=== PATIENT | female | born 1990 | race Caucasian/White ===

== ENCOUNTER 2022-02-06 06:29 | Inpatient (IN) | payer BC, SELFPAY ==
[2022-02-06] VITALS (62 sets, daily range): BP systolic 107–157; BP diastolic 41–101; PULSE 73–231; RESP 16; TEMP 36.4–37.1; O2SAT 98–100; BMI 41.3
--- NOTE | 2022-02-06 06:29 | LDADM ---
This patient, Felicia Becerril, was admitted to Labor/Delivery/Recovery 106 on 02/06/22 at 06:29. Plans for labor, pain management and were discussed with patient. Patient/family oriented to hospital policies and general routines including ID bracelet, bed and alarms, visiting hours, pain management, procedures, bathroom and other care routines, personal items, smoking policy, room service/diet and guest tray routines, infant security routines, and visiting hours. Patient/Family are encouraged to report perceived risks to care and to ask questions if they do not understand what they are told or what they should do. See OBIX for further documentation.
[2022-02-06 07:15] LABS: Basophils Percent Auto 0.2 % (0.2-1.2); Eosinophils Percent Auto 0.4 % (0-4.4); Hematocrit 39.2 % (37.0-47.0); Hemoglobin 12.9 g/dL (12.0-15.0); Immature Granulocyte Absolute 0.09 K/mm3 (0.00-0.031); Immature Granulocyte Percent A 1.1 % (0-0.5); Lymphocytes Absolute Auto 1.12 K/mm3 (0.9-3.2); Lymphocytes Percent Auto 13.3 % (18.3-44.2); Mean Corpuscular HGB Conc 32.9 g/dl (32-36); Mean Corpuscular Hemoglobin 28.2 pg (26-34); Mean Corpuscular Volume 85.8 fl (80-100); Mean Platelet Volume 12.5 fl (7.4-10.4); Monocytes Absolute Auto 0.5 K/mm3 (0.1-0.6); Monocytes Percent Auto 5.7 % (2.6-8.5); Neutrophils Absolute Auto 6.7 K/mm3 (1.3-6.7); Neutrophils Percent Auto 79.3 % (45.5-73.1); Platelet Count Result 136 k/mm3 (150-375); Red Blood Count 4.57 M/mm3 (4.2-5.4); Red Cell Distribution Width 14.4 % (11.5-14.5); White Blood Count 8.4 K/mm3 (4.5-10.0)
[2022-02-06] MEDS: LACTATED RINGERS 1,000 ML 125 ML IV CONT ×2 (07:30→15:29)
[2022-02-06] MEDS: ceFAZolin 2 GM/D5W 50 ML 2 GM/50 ML BAG IVPB (07:30)
[2022-02-06] MEDS: OXYTOCIN 30 UNITS/NS 500 ML 30 UNITS/500 ML BAG IV CONT (07:31)
--- NOTE | 2022-02-06 08:03 | WPDOBADMIT ---
Obstetrics - Admit Note Admission Note: record reviewed. No pertinent additions to the history and/or any subsequent changes in the physical findings that are not consistent with the expected course of the were found. IOL, LGA, last EFW last week 8lb 13 oz, SVE 1-2/70/-2 AROM minimal amount of clear odorless fluid, anticipate vaginal delivery Additions to the history and/or subsequent changes in the physical findings follow. None.
--- NOTE | 2022-02-06 08:59 | WPDANESEPP ---
Anes - Eval Pre Procedure Procedure: Labor Epidural Date/Time: 02/06/22 08:59 Preop Diagnosis: Labor Pain Pre Op Diagnosis: Induction of Labor Patient Data Age: 31 Gender: F Height: 1.68 m Weight: 116 kg Last Vital Signs Pulse 91 02/06/22 08:45 BP 121/82 02/06/22 08:45 O2 Del Method Room Air 02/06/22 07:30 Allergies Allergy/AdvReac Type Severity Reaction Status Date / Time amoxicillin Allergy Hives Verified 01/09/22 13:44 Home Medications Medication Instructions Recorded Confirmed Type aspirin 81 mg tablet 81 mg PO DAILY 01/09/22 02/06/22 History omeprazole magnesium 10 mg oral 20 mg PO DAILY 01/09/22 02/06/22 History suspension,delayed release (Prilosec) prenat.vits,osman,rvk-hnbn-bbctn 1 tablet PO DAILY 01/09/22 01/09/22 History Laboratory Tests 02/06/22 02/06/22 02/06/22 07:01 07:01 07:01 WBC 8.4 K/mm3 K/mm3 (4.5-10.0) RBC 4.57 M/mm3 M/mm3 (4.2-5.4) Hgb 12.9 g/dL g/dL (12.0-15.0) Hct 39.2 % % (37.0-47.0) MCV 85.8 fl fl (80-100) MCH 28.2 pg pg (26-34) MCHC 32.9 g/dl g/dl (32-36) RDW 14.4 % % (11.5-14.5) Plt Count 136 k/mm3 L k/mm3 (150-375) MPV 12.5 fl H fl (7.4-10.4) Immature Gran % (Auto) 1.1 % H % (0-0.5) Neut % (Auto) 79.3 % H % (45.5-73.1) Lymph % (Auto) 13.3 % L % (18.3-44.2) [place] % (Auto) 5.7 % % (2.6-8.5) Eos % (Auto) 0.4 % % (0-4.4) Baso % (Auto) 0.2 % % (0.2-1.2) Lymph # (Auto) 1.12 K/mm3 K/mm3 (0.9-3.2) [place] # (Auto) 0.5 K/mm3 K/mm3 (0.1-0.6) Eos # (Auto) 0.0 K/mm3 K/mm3 (0-0.3) Baso # (Auto) 0.0 K/mm3 K/mm3 (0.0-0.1) Abs Immat Gran (auto) 0.09 K/mm3 H K/mm3 (0.00-0.031) Absolute Neuts (auto) 6.7 K/mm3 K/mm3 (1.3-6.7) Absolute Nucleated RBC 0.0 K/mm3 K/mm3 (0.0-0.012) Nucleated RBC % 0.0 % % (0.0-0.2) % Immature Plt Fraction 19.0 % H % (0.9-11.2) RPR Pending Blood Type O Positive Antibody Screen Negative Patient hx anesthesia problems: none Family hx anesthesia problems: none Results Review: All pre-operative results and documents have been reviewed as part of the pre-operative evaluation. [facility] Family History Family History Mother Diabetes mellitus Lr syndrome Colon cancer Grandparent Diabetes mellitus Grandparent Heart disease Father Dementia Social History Social History Smoking status: Never smoker Substance use: never Lack of Transportation: No Lack of Food: Never True Current Housing: I Have Housing Concerned About Future Housing: No Difficulty Paying Gas/Electric Bills: No Difficulty Paying for Meds: No Currently Unemployed: No Education: Master's Degree or Higher Difficulty w/ Childcare or Family Care: No Spiritual care concerns: No Comments Medical History: Lr Syndrom, IBS, Fibromyalgia, Anxiety/Depression, ADHD Exam Day of Procedure 02/06/22 08:59
[2022-02-06] MEDS: fentaNYL CITRATE INJ (*CRX) 100 MCG/2 ML VIAL IV PUSH (18:10)
--- NOTE | 2022-02-06 20:58 | P.PCNOB_ITS ---
OB - Delivery Note Procedure Delivery date: 02/06/22 Procedure: Events: Positive Group B Strep (GBS) Induction method: AROM and Per Pitocin Protocol Delivery monitor: External FHT and External Uterine Route of delivery: Laceration Description: Labial (left) Delivery repair: vicryl Specimen: No Quantitative Blood Loss (ml): 103 Anesthesia type: Epidural Disposition: Floor Narrative: mom and baby stable and doing skin to skin [place] Baby Date of : 02/06/22 Time of : 20:40 Weeks of gestation at delivery: 39 gender: Male Weight (pounds): 8 Weight (ounces): 4 presentation: vertex position: Right Occiput Anterior Placenta delivery description: Spontaneous Cord Vessel Description: 3 Vessels, Reduced, Clamped/Cut, Delayed Cord Clamping and Around Body score one minute: 8 score five minutes: 8
[2022-02-06] MEDS: IBUPROFEN 600 MG TABLET PO (22:04)
--- NOTE | 2022-02-06 23:07 | PC.NURSE ---
Patient transferred to post room # 290 via ( w/c ). Support person present. Oriented to unit, room, information board, rooming in, admission packet and security measures. Patient verbalizes understanding.
[2022-02-06] MEDS: ACETAMINOPHEN 325 MG TABLET 650 MG PO (23:54)
[2022-02-07 05:50] VITALS: BP 126/80; PULSE 76; RESP 16; TEMP 37; O2SAT 98
[2022-02-07] MEDS: IBUPROFEN 600 MG TABLET PO ×3 (05:51→20:52)
--- NOTE | 2022-02-07 06:03 | PM.OBPNVD ---
OB - PN: Subj Subjective Date/time seen: 02/07/22 06:03 s/p vaginal delivery day 1 OB - PN: Obj Data Labs 02/06/22 07:01 Labs: Laboratory Results - last 24 hr 02/06/22 02/06/22 07:01 07:01 WBC 8.4 RBC 4.57 Hgb 12.9 Hct 39.2 MCV 85.8 MCH 28.2 MCHC 32.9 RDW 14.4 Plt Count 136 L MPV 12.5 H Immature Gran % (Auto) 1.1 H Neut % (Auto) 79.3 H Lymph % (Auto) 13.3 L [place] % (Auto) 5.7 Eos % (Auto) 0.4 Baso % (Auto) 0.2 Lymph # (Auto) 1.12 [place] # (Auto) 0.5 Eos # (Auto) 0.0 Baso # (Auto) 0.0 Abs Immat Gran (auto) 0.09 H Absolute Neuts (auto) 6.7 Absolute Nucleated RBC 0.0 Nucleated RBC % 0.0 % Immature Plt Fraction 19.0 H Blood Type O Positive Antibody Screen Negative OB - PN A/P Plan day: 1 Plan: routine care Time Spent With Patient Time: Total time spent is greater than 50% in coordination of care (as documented) at patient's floor/unit and/or counseling patient: Review of Systems Review of Systems: All systems reviewed & are unremarkable except as noted in HPI and below Exam Const: General: cooperative and healthy appearing Nutritional Appearance: average body habitus
[2022-02-07 06:24] LABS: Hematocrit 34.7 % (37.0-47.0); Hemoglobin 11.2 g/dL (12.0-15.0)
--- NOTE | 2022-02-07 06:33 | PM.OBDSVD ---
DS: Admitting Diagnosis Discharge Date 02/07/22 Admitting Diagnosis IOL OB - DS: Summary OB Procedures : None OB Procedures Intrapartum: Spontaneous Vag Delivery OB Procedures: : None Time Spent with Patient Time attestation: Total time spent providing and/or coordinating discharge services: DS: Data Data Completed and Pending Labs on day of discharge: Labs from last 24 hours 02/07/22 02/06/22 02/06/22 05:55 07:01 07:01 WBC RBC Hgb 11.2 L Hct 34.7 L MCV MCH MCHC RDW Plt Count MPV Immature Gran % (Auto) Neut % (Auto) Lymph % (Auto) [place] % (Auto) Eos % (Auto) Baso % (Auto) Lymph # (Auto) [place] # (Auto) Eos # (Auto) Baso # (Auto) Abs Immat Gran (auto) Absolute Neuts (auto) Absolute Nucleated RBC Nucleated RBC % % Immature Plt Fraction RPR Pending Blood Type O Positive Antibody Screen Negative 02/06/22 07:01 WBC 8.4 RBC 4.57 Hgb 12.9 Hct 39.2 MCV 85.8 MCH 28.2 MCHC 32.9 RDW 14.4 Plt Count 136 L MPV 12.5 H Immature Gran % (Auto) 1.1 H Neut % (Auto) 79.3 H Lymph % (Auto) 13.3 L [place] % (Auto) 5.7 Eos % (Auto) 0.4 Baso % (Auto) 0.2 Lymph # (Auto) 1.12 [place] # (Auto) 0.5 Eos # (Auto) 0.0 Baso # (Auto) 0.0 Abs Immat Gran (auto) 0.09 H Absolute Neuts (auto) 6.7 Absolute Nucleated RBC 0.0 Nucleated RBC % 0.0 % Immature Plt Fraction 19.0 H RPR Blood Type Antibody Screen Discharge Plan Discharge Attending physician on discharge: Nenita He Discharging Clinician: Ysabel Olmos Patient Disposition: Home, Self-Care Activity: pelvic rest Diet: regular Patient Instructions: Antibiotic Form Stand Alone Forms: General Discharge Information Follow-up/Referrals: Ysabel Olmos, FIDELM [Certified Nurse [employer] Nurse] - Discharge Medications: New ibuprofen 600 mg Tablet 600 mg PO Q6H PRN (Reason: Cramping) Qty: 30 0RF Continued #2 Tablet 1 tablet PO DAILY Discontinued Adult Low Dose Aspirin 81 mg Tablet 81 mg PO DAILY Prilosec 10 mg Susp,Delayed Release For Recon 20 mg PO DAILY Date of admission: 02/06/22 06:29 Primary Care Provider: UNKNOWN,DOCTOR Admitting Provider: Nenita He Attending physician on admission: Ysabel Olmos Condition: Stable
[2022-02-07 08:30] VITALS: BP 116/70; PULSE 86; RESP 20; TEMP 36.4; O2SAT 98
--- NOTE | 2022-02-07 08:31 | PM.GYNPNOP ---
SCISSORS SHARPENER - A/P Postoperative Postoperative day: 1 Postoperative status: doing well Postoperative plan: see orders Time Spent With Patient Time: Total time spent is greater than 50% in coordination of care (as documented) at patient's floor/unit and/or counseling patient: Time with patient: less than 15 minutes SCISSORS SHARPENER- PN:Vivi Post-Op Subjective Date/time seen: 02/07/22 08:31 Subjective: patient reports feeling better, patient has no complaints and pain is well controlled Exam Const: General: healthy appearing, comfortable and no acute distress Resp: Auscultation: clear to auscultation bilaterally, no rales, no rhonchi and no wheezes Cardio: Rate: regular rate Heart sounds: no click, no murmurs and no rubs GI: Inspection: non-distended Auscultation: normal bowel sounds Extrem: General: normal to inspection, no pedal edema and no calf tenderness SCISSORS SHARPENER - PN: Obj Data Vital Signs Vital Signs: Vital Signs - 24 hr 02/06/22 08:45 02/06/22 09:00 02/06/22 09:15 Temperature 98 F Pulse Rate 91 87 90 Respiratory Rate Blood Pressure 121/82 125/72 122/82 Pulse Oximetry Oxygen Delivery 02/06/22 09:30 02/06/22 10:00 02/06/22 10:30 Temperature Pulse Rate 81 89 118 H Respiratory Rate Blood Pressure 121/71 107/65 120/64 Pulse Oximetry Oxygen Delivery 02/06/22 11:00 02/06/22 11:30 02/06/22 11:45 Temperature 98.4 F Pulse Rate 83 87 Respiratory Rate Blood Pressure 114/92 H 121/75 Pulse Oximetry Oxygen Delivery 02/06/22 12:00 02/06/22 12:30 02/06/22 13:45 Temperature Pulse Rate 87 91 109 H Respiratory Rate Blood Pressure 126/61 124/71 146/81 H Pulse Oximetry Oxygen Delivery 02/06/22 14:40 02/06/22 15:00 02/06/22 15:31 Temperature 97.5 F L Pulse Rate 95 93 Respiratory Rate Blood Pressure 117/72 121/72 Pulse Oximetry Oxygen Delivery 02/06/22 16:30 02/06/22 17:01 02/06/22 17:54 Temperature 98.8 F Pulse Rate 90 93 Respiratory Rate Blood Pressure 122/65 150/91 H Pulse Oximetry Oxygen Delivery 02/06/22 18:52 02/06/22 18:53 02/06/22 18:56 Temperature Pulse Rate 104 H 92 Respiratory Rate Blood Pressure 134/77 127/83 Pulse Oximetry 98 Oxygen Delivery 02/06/22 18:57 02/06/22 18:58 02/06/22 19:01 Temperature Pulse Rate 89 92 Respiratory Rate Blood Pressure 137/79 140/78 Pulse Oximetry 99 98 Oxygen Delivery 02/06/22 19:04 02/06/22 19:06 02/06/22 19:11 Temperature Pulse Rate 94 101 H Respiratory Rate Blood Pressure 135/59 L 126/80 Pulse Oximetry 100 100 Oxygen Delivery 02/06/22 19:15 02/06/22 19:16 02/06/22 19:21 Temperature Pulse Rate 84 Respiratory Rate Blood Pressure 135/68 Pulse Oximetry 100 100 Oxygen Delivery 02/06/22 19:26 02/06/22 19:30 02/06/22 19:31 Temperature Pulse Rate Respiratory Rate Blood Pressure 138/98 H Pulse Oximetry 100 100 Oxygen Delivery 02/06/22 19:35 02/06/22 19:40 02/06/22 19:45 Temperature Pulse Rate Respiratory Rate Blood Pressure Pulse Oximetry 100 100 99 Oxygen Delivery 02/06/22 19:46 02/06/22 19:50 02/06/22 19:55 Temperature Pulse Rate 101 H Respiratory Rate Blood Pressure 111/41 L Pulse Oximetry 100 100 Oxygen Delivery 02/06/22 20:00 02/06/22 20:05 02/06/22 20:10 Temperature 97.7 F Pulse Rate 100 Respiratory Rate Blood Pressure 129/101 H Pulse Oximetry 100 100 100 Oxygen Delivery 02/06/22 20:15 02/06/22 20:16 02/06/22 20:20 Temperature Pulse Rate 102 H Respiratory Rate Blood Pressure 122/65 Pulse Oximetry 100 100 Oxygen Delivery 02/06/22 20:25 02/06/22 20:30 02/06/22 20:37 Temperature Pulse Rate 231 H Respiratory Rate Blood Pressure 134/97 H Pulse Oximetry 100 100 100 Oxygen Delivery 02/06/22 20:39 02/06/22 20:46 02/06/22 21:01 Temperature Pulse Rate 101 H 89 Respirator
[2022-02-07] MEDS: DOCUSATE SODIUM 100 MG CAPSULE PO ×2 (08:51→16:08)
[2022-02-07] MEDS: MULTIVIT/MIN/PREN/FOL AC/IRON TABLET 1 TAB PO (08:51)
[2022-02-07] MEDS: ACETAMINOPHEN 325 MG TABLET 650 MG PO ×3 (09:40→23:47)
[2022-02-07 12:00] VITALS: BP 95/57; PULSE 87; RESP 16; TEMP 36.7; O2SAT 99
[2022-02-07 15:30] VITALS: BP 121/72; PULSE 86; RESP 16; TEMP 36.8; O2SAT 100
[2022-02-07 20:25] VITALS: BP 117/76; PULSE 71; RESP 16; TEMP 36.4; O2SAT 100
[2022-02-08 07:00] VITALS: BP 118/91; PULSE 84; RESP 16; TEMP 36.8
[2022-02-08] MEDS: DOCUSATE SODIUM 100 MG CAPSULE PO (07:10)
[2022-02-08] MEDS: MULTIVIT/MIN/PREN/FOL AC/IRON TABLET 1 TAB PO (07:10)
[2022-02-08] MEDS: IBUPROFEN 600 MG TABLET PO (07:10)
--- NOTE | 2022-02-08 09:35 | PC.NURSE ---
Patient instructed on viewing the discharge video Mother & Baby Care, The First Two Weeks . Patient was given the opportunity and encouraged to ask questions. Patient verbalized understanding of information shared and has been given the mother/baby guide for home reference.
--- NOTE | 2022-02-08 10:38 | PM.OBPNVD ---
OB - PN: Subj Subjective Date/time seen: 02/08/22 10:38 s/p vaginal delivery day 2 no complaints, OB - PN: Obj Data Labs 02/07/22 05:55 OB - PN A/P Plan day: 2 Plan: routine care and discharge home Time Spent With Patient Time: Total time spent is greater than 50% in coordination of care (as documented) at patient's floor/unit and/or counseling patient: Review of Systems Review of Systems: All systems reviewed & are unremarkable except as noted in HPI and below
--- NOTE | 2022-02-08 10:38 | PM.OBDSVD ---
DS: Admitting Diagnosis Discharge Date 02/08/22 Admitting Diagnosis IOL OB - DS: Summary OB Procedures : None OB Procedures Intrapartum: Spontaneous Vag Delivery OB Procedures: : None Time Spent with Patient Time attestation: Total time spent providing and/or coordinating discharge services: Discharge Plan Discharge Attending physician on discharge: Nenita He Discharging Clinician: Ysabel Olmos Patient Disposition: Home, Self-Care Activity: pelvic rest Diet: regular Discharge Instructions: Education: Mom and Baby Guide Given to: Mother Follow-Up: Call your delivering provider's office for an appointment to be seen in: call for appointment Mom and baby should come to the [facility] for the follow-up appointment. Appointment Date/Time: February 09, 2022 at 10:00 am What to expect at your follow-up visit: Physical Assessment Call [phone] if you are unable to keep your appointment time. BREAST CARE: * Wear a snug supportive bra. * For engorgement discomfort: Breast Feeding: * Apply warm moist washcloths * Express milk as needed to relieve engorgement * Wear loose clothing * For sore nipples: * Identify correct latch-on * Apply warm moist washcloths before and after nursing * Air dry nipples after nursing * May apply Lansinoh cream to nipples EPISIOTOMY/PERINEAL CARE: * Until bleeding stops, use your mike bottle after urinating * Change your pad frequently throughout the day * You may take sitz baths several times a day (fill your bathtub with warm water and soak for 20 minutes.) Do NOT bathe in the water * No tub baths until seen by your physician - You may shower ACTIVITY: * Rest as much as possible. * Do not exercise or lift anything heavier than your baby (such as laundry or other children.) * Avoid stairs or driving as much as possible. * Do not put anything into the vagina. No douching, tampons, or sexual activity until seen by physician. NOTIFY PHYSICIAN IF YOU HAVE ANY QUESTIONS OR IF ANY OF THE FOLLOWING SYMPTOMS OCCUR: * If your episiotomy or incision becomes red, swollen, or more painful than what you have experienced in the hospital. * If your vaginal bleeding becomes foul smelling. * If your vaginal bleeding becomes more heavy than a period or if your bleeding changes from pink to bright red. However, you may pass an occasional walnut-sized clot once or twice for the first week . * If you experience a sharp, shooting pain in you calves. * If you discover a hard, reddened area on your breast or if you experience flu-like symptoms. DIET: * Eat regular, well-balanced meals. * Drink plenty of fluids daily. If , drink to thirst. Stand Alone Forms: General Discharge Information Follow-up/Referrals: Ysabel Olmos CNM [Certified Nurse [employer]] - Discharge Medications: New ibuprofen 600 mg Tablet 600 mg PO Q6H PRN (Reason: Cramping) Qty: 30 0RF Continued prenat.vits,osman,jrz-xhqo-rbzhb Tablet 1 tablet PO DAILY Discontinued Adult Low Dose Aspirin 81 mg Tablet 81 mg PO DAILY Prilosec 10 mg Susp,Delayed Release For Recon 20 mg PO DAILY Date of admission: 02/06/22 06:29 Primary Care Provider: UNKNOWN,DOCTOR Admitting Provider: Nenita He Attending physician on admission: Ysabel Olmos Condition: Stable
[2022-02-09 10:36] VITALS: BP 118/65; PULSE 77; RESP 20; TEMP 36.9; O2SAT 98
[2022-02-09 11:53] LABS: Rapid Plasma Reagin Non-Reactive (NonReactive)
== END 2022-02-08 12:15 | disposition home or self-care (01) | DRG 807 ==
LOC: ANHOB2 02-08 08:13 → ANHLDR 02-10 06:10 → ANHOB2 02-10 06:10
PROVIDERS: Advanced Practice Midwife; Admitting Provider Obstetrics & Gynecology; Visit Provider Obstetrics & Gynecology
DX: O99.824 Streptococcus B carrier state complicating childbirth (principal); Z37.0 Single live birth; O70.0 First degree perineal laceration during delivery; O69.81X0 Labor and delivery complicated by cord around neck, without compression, not applicable or unspecified; Z3A.39 39 weeks gestation of pregnancy
CPT/HCPCS: 36415; 85014; 85018; 85025; 85055; 86592; 86850; 86900; 86901; A9270; J0690; J2590; J2795; J3010; J7120

== ENCOUNTER 2022-08-09 12:42 | Emergency (ER) | payer BC, SELFPAY ==
[2022-08-09] VITALS (12 sets, daily range): BP systolic 97–116; BP diastolic 44–90; PULSE 83–130; RESP 16–23; TEMP 37.2–38.6; O2SAT 96–100
--- NOTE | 2022-08-09 13:04 | ED.SKABFB ---
HPI - Skin/Abscess/Foreign Bdy General Chief complaint: Skin/Abscess/Foreign Body Stated complaint: mastitis Time Seen by Provider: 08/09/22 12:53 History of Present Illness HPI narrative: Patient is a 31-year-old female presenting with mastitis. Patient is currently breast-feeding and states that she first noticed a subjective fever a couple of days ago. Since that time her right breast has become very red and warm. States that she has tried to continue breast-feeding but her son has an ear infection and has not been willing to breast-feed much. States that she has been trying to pump every few hours. She denies headaches, chest pain, shortness of breath, cough, abdominal pain, vomiting, diarrhea, dysuria, leg swelling. Related Data Home Medications Medication Instructions Recorded Confirmed prennayana.vitlucinda,osman,kal-ypeq-jyhkp 1 tablet PO DAILY 01/09/22 01/09/22 levothyroxine 150 mcg tablet 150 mcg PO DAILY 08/09/22 08/09/22 omeprazole 20 mg capsule,delayed 20 mg PO DAILY 08/09/22 08/09/22 release sertraline 50 mg tablet 50 mg PO DAILY 08/09/22 08/09/22 sumatriptan succinate 50 mg tablet 50 mg PO PRN PRN Headache 08/09/22 08/09/22 Allergies Allergy/AdvReac Type Severity Reaction Status Date / Time amoxicillin Allergy Hives Verified 08/09/22 13:02 Review of Systems Review of Systems: All systems reviewed & are unremarkable except as noted in HPI and below PMFSH Family History Family History Mother Diabetes mellitus Lr syndrome Colon cancer Grandparent Diabetes mellitus Grandparent Heart disease Father Dementia Social History Social History Smoking status: Never smoker Substance use: never Lack of Transportation: No Lack of Food: Never True Current Housing: I Have Housing Concerned About Future Housing: No Difficulty Paying Gas/Electric Bills: No Difficulty Paying for Meds: No Currently Unemployed: No Education: Master's Degree or Higher Difficulty w/ Childcare or Family Care: No Spiritual care concerns: No Exam Narrative: GENERAL: Well-appearing, well-nourished, and in no acute distress. HEAD: Normocephalic, atraumatic. EYES: PERRLA and EOMI. ENT: Nares clear, no rhinorrhea or epistaxis. Mucous membranes moist. NECK: Supple. CHEST: Clear to auscultation. No respiratory distress. Right breast erythematous and warm to touch, mildly tender, no areas of fluctuance noted; left breast with mild erythema surrounding nipple HEART: Tachycardic, regular rhythm ABDOMEN: Soft, nontender, nondistended EXTREMITIES: Normal range of motion. No edema. SKIN: Warm, dry, no rash. NEURO: No focal deficits. Alert and oriented x3. PSYCH: Normal mood and affect. Course Vital Signs Vital signs: Vital Signs Temperature 101.4 F H 08/09/22 12:45 Pulse Rate 130 H 08/09/22 12:45 Respiratory Rate 18 08/09/22 12:45 Blood Pressure 116/90 08/09/22 12:45 Pulse Oximetry 96 08/09/22 12:45 Oxygen Delivery Room Air 08/09/22 12:45 Temperature 98.9 F 08/09/22 17:18 Pulse Rate 83 08/09/22 22:08 Respiratory Rate 16 08/09/22 22:08 Blood Pressure 104/67 08/09/22 22:08 Pulse Oximetry 100 08/09/22 22:08 Oxygen Delivery Room Air 08/09/22 12:45 MDM - Skin/Abscess/Foreign Bdy MDM Narrative Medical decision making narrative: Patient is a 31-year-old female presenting with breast redness and pain in the setting of breast-feeding. On arrival, patient is tachycardic and febrile. Exam is consistent with mastitis. Will obtain sepsis labs, start fluids. Blood work is reassuring. Patient does not have a leukocytosis. Renal function is normal. Lactic acid was very mildly elevated at 2.2. Patient has received fluids, Toradol, Tylenol and her vital signs have now normalized. I am not concerned for sepsis at this time given her reassuring lab work,
[2022-08-09 13:28] LABS: Basophils Percent Auto 0.3 % (0.2-1.2); Eosinophils Percent Auto 0.3 % (0-4.4); Hemoglobin 12.3 g/dL (12.0-15.0); Immature Granulocyte Absolute 0.05 K/mm3 (0.00-0.031); Immature Granulocyte Percent A 0.6 % (0-0.5); Lymphocytes Absolute Auto 0.66 K/mm3 (0.9-3.2); Lymphocytes Percent Auto 7.5 % (18.3-44.2); Mean Corpuscular HGB Conc 32.4 g/dl (32-36); Mean Corpuscular Hemoglobin 27.8 pg (26-34); Mean Corpuscular Volume 85.8 fl (80-100); Mean Platelet Volume 12.8 fl (7.4-10.4); Monocytes Absolute Auto 0.4 K/mm3 (0.1-0.6); Neutrophils Absolute Auto 7.6 K/mm3 (1.3-6.7); Neutrophils Percent Auto 86.3 % (45.5-73.1); Platelet Count Result 114 k/mm3 (150-375); Red Blood Count 4.43 M/mm3 (4.2-5.4); Red Cell Distribution Width 14.4 % (11.5-14.5); White Blood Count 8.8 K/mm3 (4.5-10.0)
[2022-08-09 13:37] LABS: Alanine Aminotransferase 21 U/L (6-35); Albumin Level 4.7 g/dL (3.5-5.1); Alkaline Phosphatase 88 U/L (38-126); Anion Gap 10 mmol/L (8-16); Aspartate Amino Transferase 35 U/L (14-36); Bilirubin,Total 0.7 mg/dL (0.2-1.3); Blood Urea Nitrogen 17 mg/dL (7-17); Calcium 8.9 mg/dL (8.4-10.2); Carbon Dioxide 28 mmol/L (22-30); Chloride 99 mmol/L (98-107); Estimated CRCL calculation 87 ml/min; Estimated Glomerular Filt Rate > 60; Glucose 110 mg/dL (65-110); Lactic Acid Reflex 2.2 mmol/L (0.7-2.0); Potassium 3.5 mmol/L (3.4-5.0); Sodium 137 mmol/L (137-145)
[2022-08-09] MEDS: KETOROLAC 15 MG/ML VIAL (*BKC) IV PUSH (13:39)
[2022-08-09] MEDS: SODIUM CHLORIDE 0.9% IV 1,000 ML 999 ML IV CONT ×3 (13:39→18:15)
--- NOTE | 2022-08-09 15:49 | PC.NURSE ---
ordered tray for pt.
[2022-08-09] MEDS: CEPHALEXIN 500 MG CAPSULE PO (15:57)
[2022-08-09] MEDS: SULFAMETHOXAZOLE/TRIMETHOPRIM 800/160 MG DS TABLET 1 TAB PO (15:57)
[2022-08-09] MEDS: ACETAMINOPHEN 500 MG TABLET 1000 MG PO (15:57)
[2022-08-09 16:25] LABS: Reflex Lactic Acid Yes or No Add Lactic
--- NOTE | 2022-08-09 19:16 | PC.NURSE ---
Report given to TOLU Weldon
--- NOTE | 2022-08-09 20:21 | PC.NURSE ---
1915 Assumed pt care from TOLU Mullins
== END 2022-08-09 22:15 | disposition home or self-care (01) ==
PROVIDERS: Emergency Provider Emergency Medicine; PCP Family Medicine Sports Medicine
DX: N61.0 Mastitis without abscess (principal)
CPT/HCPCS: 36415; 80053; 83605; 85025; 87040; 96361; 96374; 99284; A9270; J1885; J7030

== ENCOUNTER 2023-02-13 11:59 | Emergency (ER) | payer BC, SELFPAY ==
--- NOTE | ~2023-02-13 | CT_ITS ---
EXAMINATION: CT lumbar spine wo con DATE: 02/13/2023 14:43 INDICATION: Low back pain . TECHNIQUE: Computed tomography (CT) of the lumbar spine was performed without intravenous contrast. A utomated exposure control and iterative reconstruction technique were employed. The dose-length produ ct was 1317.58 mGy-cm. COMPARISON: None. FINDINGS: 5 nonrib-bearing lumbar-type vertebral bodies. Pedicles intact. Normal vertebral body align ment. Vertebral body heights preserved. Multilevel mild-moderate degenerative disc disease. Multileve l mild facet arthropathy. Mild central stenosis at L3-4 and L4-5. No significant neural foraminal geovanna rowing. IUD. Sclerosis and erosions at the bilateral SI joints. IMPRESSION: No acute fracture or traumatic malalignment in the lumbar spine. Bilateral sacroiliitis. Multilevel mild-moderate degenerative disc disease. Multilevel moderate central canal stenosis. Reviewed, dictated and finalized at location K. [employer]
[2023-02-13 12:00] VITALS: BP 140/75; PULSE 104; RESP 18; TEMP 36.4; O2SAT 98
[2023-02-13] MEDS: CYCLOBENZAPRINE HCL 10 MG TABLET PO (13:49)
[2023-02-13] MEDS: KETOROLAC 30 MG/ML VIAL (*BKC) IM (13:50)
--- NOTE | 2023-02-13 16:06 | ED.BACK ---
HPI - Back Pain/Injury General Chief Complaint: Back Pain/Injury Stated Complaint: lower back pop Time Seen by Provider: 02/13/23 13:17 History of Present Illness HPI Narrative: This is a 32-year-old female, with history lumbar degenerative joint disease, who presents to the emergency department complaining low back pain. The patient states earlier today as she was taking down a wooden board, she bent forward then straightened and felt a pop in her low back. This is accompanied by a sudden onset sharp pain, rated 7/10 with radiation to the bilateral hips. She denies loss of sensation in the groin, loss of bowel or bladder control or weakness or numbness in the legs. She has no other complaints at this time. Related Data Home Medications Medication Instructions Recorded Confirmed prennayana.vitlucinda,osman,tce-lwcu-hgzmr 1 tablet PO DAILY 01/09/22 01/09/22 levothyroxine 150 mcg tablet 150 mcg PO DAILY 08/09/22 08/09/22 omeprazole 20 mg capsule,delayed 20 mg PO DAILY 08/09/22 08/09/22 release sertraline 50 mg tablet 50 mg PO DAILY 08/09/22 08/09/22 sumatriptan succinate 50 mg tablet 50 mg PO PRN PRN Headache 08/09/22 08/09/22 Allergies Allergy/AdvReac Type Severity Reaction Status Date / Time amoxicillin Allergy Hives Verified 02/13/23 12:58 Review of Systems Review of Systems: CONSTITUTIONAL: Denies fever, chills, or sweats. CARDIOVASCULAR: Denies chest pain, palpitations, or edema. RESPIRATORY: Denies cough or dyspnea. GASTROINTESTINAL: Denies abdominal pain, nausea, vomiting, or diarrhea. GENITOURINARY: Denies dysuria or hematuria. MUSCULOSKELETAL: Low back pain Denies joint pain, or myalgia. NEUROLOGIC: Denies headache, numbness, dizziness, or weakness. PSYCHIATRIC: Denies anxiety or depression. [facility] Past Medical History Medical History DJD (degenerative joint disease) Surgical History Surgical History No significant past surgical history Family History Family History Mother Diabetes mellitus Lr syndrome Colon cancer Grandparent Diabetes mellitus Grandparent Heart disease Father Dementia Social History Social History (Updated 02/14/23 @ 02:09 by Master Gutierrez MD) Smoking status: Never smoker Alcohol intake: never Substance use: never Lack of Transportation: No Lack of Food: Never True Current Housing: I Have Housing Concerned About Future Housing: No Difficulty Paying Gas/Electric Bills: No Difficulty Paying for Meds: No Currently Unemployed: No Education: Master's Degree or Higher Difficulty w/ Childcare or Family Care: No Spiritual care concerns: No Exam Narrative: GENERAL: Well-developed, well-nourished, and in no acute distress. appears uncomfortable HEAD: Normocephalic, atraumatic. EYES: PERRLA and EOMI. CHEST: Clear to auscultation. No respiratory distress. No wheezes rales or rhonchi HEART: Regular rate and rhythm. No murmur heard. Normal peripheral pulses. ABDOMEN: Soft, nontender, nondistended, normal active bowel sounds. BACK: Midline tenderness to palpation at approximately the L4-L5 without step-off or crepitus. There is no noted erythema or induration. EXTREMITIES: Normal range of motion. No edema. SKIN: Warm, dry, no rash. NEURO: Alert and oriented x3. Strength 5/5 in all extremities, sensation intact bilaterally PSYCH: Normal mood and affect. Course Course Emergency Course: 16:05 - CT of the lumbar spine demonstrates changes consistent with degenerative joint disease, bilateral sacroiliitis and moderate central canal stenosis, but is not concerning for fracture or mass. On re-evaluation, the patient states her pain is improved and she is comfortable with discharge. Discussed return and emergency precautions including signs/symptoms of cauda equina. The patient voice
== END 2023-02-13 16:34 | disposition home or self-care (01) ==
PROVIDERS: Emergency Provider Preventive Medicine Aerospace Medicine; PCP Family Medicine Sports Medicine
DX: M51.36 Other intervertebral disc degeneration, lumbar region (principal); M46.1 Sacroiliitis, not elsewhere classified
CPT/HCPCS: 72131; 81025; 96372; 99284; A9270; J1885